=== PATIENT | female | born 1945 ===

== ENCOUNTER 2021-09-03 08:25 | Day surgery (SDC) | payer OTHER ==
[~2021-09-03 08:25] MED LIST: CIPRO500 MG PO; FLAGYL500MG PO; INTESTINEX1 CA1 PO; PREVACID30 MG PO; SYNTHROID100 MCG PO
== END 2021-09-03 11:35 | disposition home or self-care (01) ==
LOC: AMB-ENDOS 08:25
PROVIDERS: ATTEND Surgery
DX: K57.32 Diverticulitis of large intestine without perforation or abscess without bleeding (principal); Z20.822 Contact with and (suspected) exposure to COVID-19

== ENCOUNTER 2022-01-11 16:53 | Emergency (ER) | payer OTHER ==
[~2022-01-11] VITALS: Ht 160 cm; Wt 68.0 kg
[2022-01-11] MEDS ORDERED: VISTARIL50 MG PO (21:55)
== END 2022-01-11 21:59 ==
LOC: ER 16:53
DX: R42 Dizziness and giddiness (principal); I10 Essential (primary) hypertension; Z91.013 Allergy to seafood; Z88.0 Allergy status to penicillin; F41.9 Anxiety disorder, unspecified; E03.9 Hypothyroidism, unspecified

== ENCOUNTER 2022-01-30 09:50 | Emergency (ER) | payer OTHER ==
[~2022-01-30] VITALS: Ht 160 cm; Wt 59.0 kg
[~2022-01-30 09:50] MED LIST changes: +VISTARIL50 MG PO
== END 2022-01-30 13:02 | disposition home or self-care (01) ==
LOC: ER 09:50
DX: S00.83XA Contusion of other part of head, initial encounter (principal); W18.39XA Other fall on same level, initial encounter; Y93.9 Activity, unspecified; Y92.018 Other place in single-family (private) house as the place of occurrence of the external cause; Z88.0 Allergy status to penicillin; Z91.013 Allergy to seafood

== ENCOUNTER 2022-04-12 18:23 | Inpatient (IN) | payer OTHER ==
[~2022-04-12] VITALS: Ht 160 cm; Wt 63.5 kg
[2022-04-15] MEDS ORDERED: MECLIZINE HCL25 MG (08:03)
[2022-04-15] MEDS ORDERED: QUETIAPINE FUM100 MG (08:03)
[2022-04-15] MEDS ORDERED: PANTOPRAZOLE SO40 MG (08:03)
[2022-04-15] MEDS ORDERED: LORAZEPAM2 MG (08:03)
[2022-04-15] MEDS ORDERED: SERTRALINE HCL100 MG (08:03)
[2022-04-15] MEDS ORDERED: DIVALPROEX SOD500 M1 (08:03)
[2022-04-15] MEDS ORDERED: INTESTINEX680 M1 (08:03)
[2022-04-15] MEDS ORDERED: LOSARTAN-HCTZ1 EACH (08:03)
[2022-04-15] MEDS ORDERED: ALENDRONATE SOD70 MG (08:04)
[2022-04-15] MEDS ORDERED: EZETIMIBE10 MG (08:04)
[2022-04-15] MEDS ORDERED: ESTAZOLAM1 MG (08:04)
== END 2022-04-16 20:33 | DRG 392 ==
LOC: ER 18:23 → SEC-K 04-13 11:49 → MEDI 04-13 11:49
PROVIDERS: ADMIT Internal Medicine; ATTEND Internal Medicine
DX: K57.32 Diverticulitis of large intestine without perforation or abscess without bleeding (principal); A04.72 Enterocolitis due to Clostridium difficile, not specified as recurrent; R10.9 Unspecified abdominal pain; D72.828 Other elevated white blood cell count; Z20.822 Contact with and (suspected) exposure to COVID-19; I10 Essential (primary) hypertension; E86.0 Dehydration; E87.8 Other disorders of electrolyte and fluid balance, not elsewhere classified; E03.8 Other specified hypothyroidism; E11.9 Type 2 diabetes mellitus without complications

== ENCOUNTER 2022-07-05 11:58 | Emergency (ER) | payer OTHER ==
[~2022-07-05] VITALS: Ht 160 cm; Wt 63.5 kg
[~2022-07-05 11:58] MED LIST changes: +ALENDRONATE SOD70 MG; +DIVALPROEX SOD500 M1; +ESTAZOLAM1 MG; +EZETIMIBE10 MG; +INTESTINEX680 M1; +LORAZEPAM2 MG; +LOSARTAN-HCTZ1 EACH; +MECLIZINE HCL25 MG; +PANTOPRAZOLE SO40 MG; +QUETIAPINE FUM100 MG; +SERTRALINE HCL100 MG
== END 2022-07-05 20:02 | disposition home or self-care (01) ==
LOC: ER 11:58
DX: K57.30 Diverticulosis of large intestine without perforation or abscess without bleeding (principal); Z88.6 Allergy status to analgesic agent; Z91.013 Allergy to seafood